=== PATIENT | female | born 1990 | race Caucasian/White ===

== ENCOUNTER 2017-09-09 19:39 | Emergency (ER) | payer OTHER ==
[~2017-09-09] VITALS: Ht 149.9 cm; Wt 42.6 kg
[~2017-09-09 19:39] MED LIST: INTESTINEX1 CAP PO; LEVSIN/SL0.125 MG PO; NO; PROTONIX40 MG PO
== END 2017-09-09 21:40 | disposition home or self-care (01) ==
LOC: ER 19:39
DX: K29.70 Gastritis, unspecified, without bleeding (principal)

== ENCOUNTER 2020-02-28 17:35 | Emergency (ER) | payer OTHER ==
[~2020-02-28] VITALS: Ht 149.9 cm; Wt 45.4 kg
[2020-02-28] MEDS ORDERED: PROTONIX20 MG (17:55)
[2020-02-28] MEDS ORDERED: DICY20TA PO (20:07)
[2020-02-28] MEDS ORDERED: ZOFRAN8 MG SL (20:07)
[2020-02-28] MEDS ORDERED: PEPCID AC20 MG PO (20:07)
[2020-02-28] MEDS ORDERED: CARAFATE1 GM PO (20:07)
== END 2020-02-28 20:57 | disposition home or self-care (01) ==
LOC: ER 17:35
DX: K29.60 Other gastritis without bleeding (principal)